=== PATIENT | female | born 1965 | race Caucasian/White ===

== ENCOUNTER 2017-02-02 20:04 | Inpatient (IN) | payer OTHER ==
[~2017-02-02] VITALS: Ht 154.9 cm; Wt 75.9 kg
[2017-02-02] MEDS ORDERED: niCARdipine-D5W 0.1MG/ML DRIP 200 ML IV STA (20:24)
[2017-02-02 20:27] LABS: BASOPHILS % 0.5 % (0.0-2.0); EOSINOPHILS # 0.1 10^3/ul (0.0-0.5); EOSINOPHILS % 0.8 % (0.0-7.0); HEMATOCRIT 43.9 % (37.0-47.0); HEMOGLOBIN 14.7 g/dl (12.0-16.0); LYMPHOCYTES # 1.5 10^3/ul (0.8-2.9); LYMPHOCYTES % 20.1 % (15.0-51.0); MEAN CORPUSCULAR HEMOGLOBIN 26.6 pg (29.0-33.0); MEAN CORPUSCULAR HGB CONC 33.5 g/dl (32.0-37.0); MEAN CORPUSCULAR VOLUME 79.4 fl (82.0-101.0); MEAN PLATELET VOLUME 10.2 fl (7.4-10.4); MONOCYTE # 0.4 10^3/ul (0.3-0.9); MONOCYTES % 5.3 % (0.0-11.0); NEUTROPHIL # 5.5 10^3/ul (1.6-7.5); NEUTROPHILS % 72.6 % (39.0-77.0); PLATELET COUNT 279 10^3/UL (140-415); RED BLOOD COUNT 5.53 10^6/ul (4.20-5.40); RED CELL DISTRIBUTION WIDTH 13.4 % (11.5-14.5); WHITE BLOOD COUNT 7.6 10^3/ul (4.8-10.8)
[2017-02-02] MEDS ORDERED: SOD CHLORIDE 0.9% 50 ML IV ONE (20:30)
[2017-02-02] MEDS ORDERED: LABETALOL HCL 20MG INJ IV ONE (20:30)
[2017-02-02] MEDS ORDERED: ALTEPLASE 100 MG INJ IV* ONE (20:30)
[2017-02-02] MEDS ORDERED: ALTEPLASE (tPA) 1 MG/ML BOLUS SYG IV* ONE (20:30)
--- NOTE | 2017-02-02 20:34 | RADRPT ---
PROCEDURE: CT brain without IV contrast. CLINICAL INDICATION: Weakness. TECHNIQUE: CT examination of the brain was performed on a 64-slice multidetector scanner. The pat ient was examined without IV contrast. Sagittal and coronal reformatted images were made. The imag es were reviewed on a PACS workstation. Total radiation dose: Total CTDIvol: 45 mGy. Total DLP: 630 mGy-cm. One or more of the following dose reduction techniques were used: automated exposure control, adjustment of the mA and/or kV acco rding to patient size, or use of iterative reconstruction technique COMPARISON: None available. FINDINGS: The ventricles and cerebral sulci are normal in size for this patient's age. The grant/white matter differentiation is well preserved. There is no other abnormal intra-axial high, low density lesion, suggesting tumor, infarct, bleeding, av malformation or inflammatory mass. No subdural or epidural hematoma. There is calcified atherosclerosis of the intracranial internal c arotid arteries. The visualized paranasal sinuses and mastoid air cells are clear. The orbits are unremarkable. The calvarium is intact. No scalp abnormalities are seen. IMPRESSION: 1. Unremarkable CT brain without IV contrast. RPTAT: GG .Prakash Norwood MD, MD Date Time Electronically viewed and signed by .Prakash Norwood MD, on 02/02/2017 20:34 .Y/
[2017-02-02 20:49] LABS: INR 0.84; PROTIME 11.5 Sec (12.2-14.2); PT RATIO 0.9
[2017-02-02 20:50] LABS: PARTIAL THROMBOPLASTIN TIME 23.5 Sec (25.0-35.0)
[2017-02-02 20:51] LABS: ANION GAP 25 (8-16); BLOOD UREA NITROGEN 12 mg/dl (7-20); CALCIUM 10.6 mg/dl (8.4-10.2); CARBON DIOXIDE 25 mmol/L (21-31); CHLORIDE 101 mmol/L (97-110); CREATININE 0.64 mg/dl (0.44-1.00); GLUCOSE 126 mg/dl (70-220); POTASSIUM 3.9 mmol/L (3.5-5.1); SODIUM 147 mmol/L (135-144)
[2017-02-02] MEDS ORDERED: ASPIRIN 325 MG TAB PO ONE (21:00)
[2017-02-02 21:04] LABS: TROPONIN-I < 0.012 ng/ml (0.00-0.12)
[2017-02-02 21:15] LABS: ADD UMIC NO; UR ASCORBIC ACID NEGATIVE (NEGATIVE); UR BILIRUBIN (Dip) NEGATIVE (NEGATIVE); UR BLOOD (Dip) NEGATIVE (NEGATIVE); UR CLARITY CLEAR (CLEAR); UR COLOR COLORLESS (YELLOW); UR GLUCOSE (Dip) NEGATIVE (NEGATIVE); UR KETONES (Dip) NEGATIVE (NEGATIVE); UR LEUKOCYTE ESTERASE (Dip) NEGATIVE Leu/ul (NEGATIVE); UR NITRITE (Dip) NEGATIVE (NEGATIVE); UR SPECIFIC GRAVITY (Dip) 1.002 (1.003-1.030); UR TOTAL PROTEIN (Dip) NEGATIVE (NEGATIVE); UR UROBILINOGEN (Dip) NEGATIVE (NEGATIVE)
--- NOTE | 2017-02-02 21:16 | RADRPT ---
PROCEDURE: XR Chest. CLINICAL INDICATION: Stroke. TECHNIQUE: Single frontal chest x-ray. COMPARISON: None available. FINDINGS: The cardiomediastinal silhouette is unremarkable. No pneumothorax, pleural effusion or consolidation is seen. No acute osseous abnormality is noted. IMPRESSION: 1. No acute cardiopulmonary abnormality. RPTAT: HFN .Franck Fernandes MD, MD Date Time Electronically viewed and signed by .Franck Fernandes MD, on 02/02/2017 21:16 .N/
[2017-02-02 21:20] LABS: BARBITURATES Negative (NEGATIVE); BENZODIAZEPINES Negative (NEGATIVE); CANNABINOIDS Negative (NEGATIVE); COCAINE Negative (NEGATIVE); OPIATES Negative (NEGATIVE)
[2017-02-02] MEDS ORDERED: ACETAMINOPHEN 325 MG TAB PO PRN (21:30)
[2017-02-02] MEDS ORDERED: ONDANSETRON 4 MG INJ IV PRN (21:30)
--- NOTE | 2017-02-02 22:23 | ERA ---
ER Documentation Chief Complaint Date/Time DATE: 02/02/17 TIME: 22:20 Chief Complaint walked in er co"numbness of face and l arm for 3-4 hours" HPI Patient is a 51-year-old female with hypertension who presents with left hand and left leg numbness. She said that the symptoms started "3-4 hours ago". She feels numb. She has decreased strength in the left upper and left lower extremity. She has never had this before. She took her blood pressure medicine before coming to the ER. When I asked her exactly what time this started she said "5:00 but I do not know". Upon review of old medical records this is the patient's first visit to the emergency department. She does not know the name of her primary doctor. ROS All systems reviewed and are negative except as per history of present illness. Allergies Allergies: Coded Allergies: No Known Allergy (Unverified , 02/02/17) PMhx/Soc History of Surgery: No Anesthesia Reaction: No Hx Respiratory Disorders: No Hx Cardiac Disorders: Yes (HTN) Hx Psychiatric Problems: No Hx Miscellaneous Medical Probl: No Hx Alcohol Use: No Hx Substance Use: No Hx Tobacco Use: No Smoking Status: Never smoker FmHx Family History: diabetes Physical Exam Vitals Vital Signs Date Time Temp Pulse Resp B/P Pulse Ox O2 Delivery O2 Flow Rate FiO2 02/02/17 21:38 78 20 153/90 98 Room Air 02/02/17 20:08 97.8 100 18 222/113 97 Physical Exam Const: Moderate distress Head: Atraumatic Eyes: Normal Conjunctiva ENT: Normal External Ears, Nose and Mouth. Neck: Full range of motion..~ No meningismus. Resp: Clear to auscultation bilaterally Cardio: Regular rate and rhythm, no murmurs Abd: Soft, non tender, non distended. 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, pronator drift on the left, difficulty with lifting the left leg compared to the right off the bed Psych: Normal Mood and Affect Result Diagram: 02/02/17201702/02/17 2018 Results 24 hrs Laboratory Tests Test 02/02/17 20:13 02/02/17 20:18 02/02/17 20:50 Bedside Glucose 124mg/dL White Blood Count 7.610^3/ul Red Blood Count 5.5310^6/ul Hemoglobin 14.7g/dl Hematocrit 43.9% Mean Corpuscular Volume 79.4fl Mean Corpuscular Hemoglobin 26.6pg Mean Corpuscular Hemoglobin Concent 33.5g/dl Red Cell Distribution Width 13.4% Platelet Count 62376^3/UL Mean Platelet Volume 10.2fl Neutrophils % 72.6% Lymphocytes % 20.1% Monocytes % 5.3% Eosinophils % 0.8% Basophils % 0.5% Nucleated Red Blood Cells % 0.0/100WBC Neutrophils # 5.510^3/ul Lymphocytes # 1.510^3/ul Monocytes # 0.410^3/ul Eosinophils # 0.110^3/ul Basophils # 0.010^3/ul Nucleated Red Blood Cells # 0.010^3/ul Prothrombin Time 11.5Sec Prothrombin Time Ratio 0.9 INR International Normalized Ratio 0.84 Activated Partial Thromboplast Time 23.5Sec Sodium Level 147mmol/L Potassium Level 3.9mmol/L Chloride Level 101mmol/L Carbon Dioxide Level 25mmol/L Anion Gap 25 Blood Urea Nitrogen 12mg/dl Creatinine 0.64mg/dl Glucose Level 126mg/dl Hemoglobin A1c 6.1% Calcium Level 10.6mg/dl Troponin I < 0.012ng/ml Urine Color COLORLESS Urine Clarity CLEAR Urine pH 8.0 Urine Specific [place] 1.002 Urine Ketones NEGATIVEmg/dL Urine Nitrite NEGATIVEmg/dL Urine Bilirubin NEGATIVEmg/dL Urine Urobilinogen NEGATIVEmg/dL Urine Leukocyte Esterase NEGATIVELeu/ul Urine Hemoglobin NEGATIVEmg/dL Urine Glucose NEGATIVEmg/dL Urine Total Protein NEGATIVEmg/dl Urine Opiates Screen Negative Urine Barbiturates Negative Urine Amphetamines Screen Negative Urine Benzodiazepines Screen Negative Urine Cocaine Screen Negative Urine Cannabinoids Negative Current Medications Medications (Trade) Dose Ordered Sig/Romelia Route PRN Reason Start Time Stop Time Status Last Admin Dose Admin Labetalol HCl 20 mg 20 mg ONCE ONCE IV 02/02/17 20:30 02/02/17 20:38 DC Nicardipine HCl (Cardene Iv) 200 ml @ 50 mls/hr ONCE STAT IV 02/02/17 20:24 02/02/17 20:38 DC Alteplase, Recombinant (Activase) 6.3 mg BOLUS OVER 1 MIN ONCE IV* 02/02/17 20:30 02/02/17 20:38 DC Alteplase, Recombinant 56.7 mg 56.7 mg ISCHEMIC STROKE ONCE IV* 02/02/17 20:30 02/02/17 20:38 DC Sodium Chloride (NS) 50 ml @ 0 mls/hr FLUSH AFTER TPA ONCE IV 02/02/17 20:30 02/02/17 20:38 DC Aspirin (Aspirin) 325 mg ONCE ONCE PO 02/02/17 21:00 02/02/17 21:01 DC 02/02/17 20:52 Ondansetron HCl (Zofran Inj) 4 mg ER BRIDGE PRN IV NAUSEA AND/OR VOMITING 02/02/17 21:30 02/03/17 21:29 Acetaminophen (Tylenol Tab) 650 mg ER BRIDGE PRN PO MILD PAIN/FEVER 02/02/17 21:30 02/03/17 21:29 Procedures/MDM EKG read by me: Rate/Rhythm: Regular rate and rhythm at a normal rate Intervals: Normal Impression: No evidence of ischemia or arrhythmia CT brain negative per radiology. Chest x-ray negative per radiology Patient is a 51-year-old female who presents with left upper and lower extremity weakness. A code stroke was called immediately after evaluation at 2016. We called tele-neurology at 2017. The patient went to CT scan at 2021. I spoke with Dr. De La Cruz from neurology at . Dr. De La Cruz performed evaluation at 2035 and 2036 determined that the patient did not require TPA as her symptoms had resolved almost completely. I believe that this patient was most likely a TIA but given her age her likelihood of having a stroke in the next 48 hours is high and therefore the patient will require admission to the hospital. The patient was not given TPA as her symptoms resolved and the risks of giving TPA would outweigh the benefits. The patient passed a bedside swallow evaluation was given aspirin by mouth. She will be admitted to the care of Dr. Briceno from the panel team as she has preferred [employer] insurance. She will be admitted to a telemetry bed. Critical Care: Time: 35 minutes excluding all billable procedures. Treatments/Evaluations: Close monitoring and treatment of unstable vital signs, cardiorespiratory, and neurologic status, while maintaining tight balance of fluid, respiratory, and cardiac interventions. Departure Diagnosis: Primary Impression: TIA (transient ischemic attack) Qualified Code: G45.9 - Transient cerebral ischemia, unspecified type Additional Impression: Numbness Condition: VJ Garvin MD Feb 02, 2017 22:23
[2017-02-02 23:22] VITALS: TEMP 98.1
[2017-02-02 23:49] VITALS: BP 164/81; PULSE 77; RESP 18
[2017-02-02 23:54] VITALS: Ht 154.9 cm; Wt 75.9 kg
[2017-02-03] VITALS (12 sets, daily range): BP systolic 125–155; BP diastolic 68–89; PULSE 63–86; RESP 16–21
[2017-02-03] MEDS ORDERED: LISI20TA11 PO (00:09)
[2017-02-03] MEDS ORDERED: ONDANSETRON 4 MG INJ IV PRN (01:00)
[2017-02-03] MEDS ORDERED: ACETAMINOPHEN 325 MG TAB PO PRN (01:00)
--- NOTE | 2017-02-03 06:47 | HP ---
Date/Time of Note Date/Time of Note DATE: 02/03/17 TIME: 06:36 Assessment/Plan VTE Prophylaxis VTE Prophylaxis Intervention: LMWH Lines/Catheters IV [facility]from [facility] Saline Lock Urinary Cath still in place: No Assessment/Plan Assessment/Plan 1. Rule out stroke -Patient weakness and numbness has now completely resolved. CT of the head in the ER was unremarkable. She was evaluated by the telemetry neurologist who recommended against TPA given symptom was almost resolved. -She will be placed on aspirin, statin and subcutaneous heparin or Lovenox for DVT prophylaxis. -Patient has already received anti-hypertensive in the ER, which was appropriate given her systolic blood pressure was greater than 220 and also since they were anticipating likely TPA. Blood pressure has been in the 150s/ 80s. I will not start blood pressure medication now -We will obtain MRI of the brain, carotid Doppler ultrasound, a 2D echo and place a neurology consult -Speech/swallow and a physical therapy evaluation 2. Hypertensive emergency: Blood pressure is better controlled now. Will monitor HPI/ROS Admit Date/Time Admit Date/Time Feb 02, 2017 at 21:14 Hx of Present Illness This is a 51-year-old female with a history of hypertension who presented to the emergency department complaining of left-sided numbness and weakness. About 3-4 hours prior to her arrival to the ER, she noted left arm and leg numbness and weakness. Denied slurred speech, facial droop, double vision or any other visual disturbance, chest pain, shortness of breath or seizure-like activities. Denied similar symptoms in the past. She said she has been under stress lately. When she came to the ER, reportedly she was emotional and was crying. Currently patient was admitted to telemetry unit and she is actually feeling well. She stated that the reason why she was crying when she was in the ER was because she did not want to be admitted and wanted to go home. Her left upper and left lower extremity weakness and numbness are completely resolved now. When she presented to the ER, code stroke was activated. Her initial blood pressure was 222/113 with a heart rate of 100. CT of the head was unremarkable. Patient was evaluated by the telemetry neurologist who recommended against TPA given her symptom at the time of evaluation was almost completely resolved. PMH/Family/Social Past Medical History Medical History: hypertension Past Surgical History Past Surgical Hx: cholecystectomy, other (Partial hysterectomy) Social History Alcohol Use: none Smoking Status: Never smoker Drug Use: none Exam/Review of Systems Vital Signs Vitals Vital Signs Date Time Temp Pulse Resp B/P Pulse Ox O2 Delivery O2 Flow Rate FiO2 02/03/17 04:07 86 02/03/17 03:47 98.3 21 150/79 97 02/02/17 23:49 Room Air Exam Constitutional: alert, oriented, well developed Head: normocephalic Neck: non-tender, supple Respiratory: clear to auscultation, normal air movement Cardiovascular: nl pulses, regular rate and rhythm Gastrointestinal: non-tender, soft Extremities: normal pulses Neurological: nl mental status, nl speech, nl strength, other Labs Result Diagram: 02/02/17201702/02/172017 Medications Medications Current Medications Aspirin (Aspirin) 81 mg DAILY PO ; Start 02/03/17 at 09:00 Atorvastatin Calcium (Lipitor) 20 mg HS PO ; Start 02/03/17 at 21:00 Acetaminophen (Tylenol Tab) 650 mg Q6H PRN PO PAIN AND OR ELEVATED TEMP; Start 02/03/17 at 01:00 Ondansetron HCl (Zofran Inj) 4 mg Q6H PRN IV NAUSEA AND/OR VOMITING; Start at 01:00 Enoxaparin Sodium (Lovenox) 40 mg DAILY SC ; Start 02/03/17 at 09:00 POLO HERNANDEZ MD Feb 03, 2017 06:46
[2017-02-03 07:21] LABS: BASOPHILS % 0.4 % (0.0-2.0); EOSINOPHILS # 0.2 10^3/ul (0.0-0.5); EOSINOPHILS % 2.1 % (0.0-7.0); HEMOGLOBIN 12.7 g/dl (12.0-16.0); LYMPHOCYTES # 2.5 10^3/ul (0.8-2.9); LYMPHOCYTES % 35.5 % (15.0-51.0); MEAN CORPUSCULAR HEMOGLOBIN 25.8 pg (29.0-33.0); MEAN CORPUSCULAR HGB CONC 32.6 g/dl (32.0-37.0); MEAN CORPUSCULAR VOLUME 79.1 fl (82.0-101.0); MEAN PLATELET VOLUME 10.5 fl (7.4-10.4); MONOCYTE # 0.6 10^3/ul (0.3-0.9); MONOCYTES % 8.5 % (0.0-11.0); NEUTROPHIL # 3.8 10^3/ul (1.6-7.5); NEUTROPHILS % 53.2 % (39.0-77.0); PLATELET COUNT 260 10^3/UL (140-415); RED BLOOD COUNT 4.93 10^6/ul (4.20-5.40); WHITE BLOOD COUNT 7.1 10^3/ul (4.8-10.8)
[2017-02-03 07:40] LABS: ALBUMIN 4.2 g/dl (3.3-4.9); ALBUMIN/GLOBULIN RATIO 1.35; BILIRUBIN,INDIRECT 0.3 mg/dl (0-1.1); BILIRUBIN,TOTAL 0.3 mg/dl (0.2-1.3); CALCIUM 9.1 mg/dl (8.4-10.2); CHOL/HDL RATIO 4.6 RATIO; CREATININE 0.65 mg/dl (0.44-1.00); POTASSIUM 3.9 mmol/L (3.5-5.1); TOTAL PROTEIN 7.3 g/dl (6.1-8.1)
[2017-02-03] MEDS: ASPIRIN 81 MG TAB PO SCH (09:54)
[2017-02-03] MEDS: ENOXAPARIN 40 MG/0.4 ML SYG SC SCH (09:54)
--- NOTE | 2017-02-03 12:06 | RADRPT ---
PROCEDURE: US Carotids. CLINICAL INDICATION: bruit , TIA TECHNIQUE: Multiple sonographic of the carotid bifurcation region and vertebral arteries were obta ined utilizing grant scale, duplex and color-flow imaging. The images were reviewed on a PACS worksta tion. COMPARISON: No prior studies are available for comparison. FINDINGS: Evaluation of the right carotid bifurcation region reveals no significant calcific atherosclerotic d isease. Evaluation of the left carotid bifurcation region reveals no significant calcific atherosclerotic di sease. There is antegrade flow within the vertebral arteries bilaterally. RIGHT CAROTID MEASUREMENTS: Common Carotid Flfvod66.8 (cm/sec) Internal Carotid Artery - ifoxzhhf70.2 (cm/sec) Internal Carotid Artery - mid56.7 (cm/sec) Internal Carotid Artery - mhnlis02.8 (cm/sec) Internal Carotid/Common Carotid1.24 LEFT CAROTID MEASUREMENTS: Common Carotid Svjlvb57 (cm/sec) Internal Carotid Artery - dajdqhrp59.1 (cm/sec) Internal Carotid Artery - mid65.1 (cm/sec) Internal Carotid Artery - cegicy15.3 (cm/sec) Internal Carotid/Common Carotid1.05 RPTAT: AA IMPRESSION: No evidence for hemodynamically significant stenosis in the bilateral internal carotid arteries - va lidated velocity measurements with angiographic measurements, velocity criteria are extrapolated fro m diameter data as defined by the Society of Radiologists in Ultrasound Consensus Conference Radiolo gy 2003; 229;340-346. This study does indirectly reference the measurement of the distal ICA diamet er as the denominator for stenosis measurement. Normal antegrade flow in the vertebral arteries bilaterally. .Shailesh Olson MD, Date Time Electronically viewed and signed by .Shailesh Olson MD, on 02/03/2017 12:05 .S/
--- NOTE | 2017-02-03 12:09 | CONS ---
Date/Time of Note Date/Time of Note DATE: 02/03/17 TIME: 12:05 Assessment/Plan Assessment/Plan Chief Complaint/Hosp Course 51 yo female with history of hypertension admitted with 3 hours of left sided numbness/weakness, resolved on arrival Recommendations -maintain normotensive BP <140/90 -c/w aspirin 81 mg daily for secondary CVA prevention HBA1C pre-diabetes 6.0% counseled on exercise and dietary modification LDL: 118 may benefit from low dose statin , dietary modification -MRI Brain w/o contrast -Carotid Duplex -ECHO pending -DVT ppx -PT/OT eval will follow Problems: Consultation Date/Type/Reason Admit Date/Time Feb 02, 2017 at 21:14 Date of Consultation: Feb 03, 2017 Type of Consultation: Neurology Reason for Consultation evaluation for CVA Referring Provider: EASTON MCCULLOUGH Hx of Present Illness 51 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 On arrival to ER symptoms resolved and was not a candidate for IV tPA. She denies any dysarthria or aphasia, no facial droop, visual disturbances or difficulty ambulating. She has no prior similar sx in the past. On arrival SBP elevated 223 /113 sinus tachycardia.Symptoms are stable no further neurologic events she is planned for CVA work up. At home she admits to compliance with anti-hypertensives, takes Lisinopril 20 mg daily, occasionally takes aspirin as needed. Past Medical History Medical History: hypertension Past Surgical History Past Surgical Hx: cholecystectomy, other (Partial hysterectomy) Social History Alcohol Use: none Smoking Status: Never smoker Drug Use: none Exam/Review of Systems Vital Signs Vitals Vital Signs Date Time Temp Pulse Resp B/P Pulse Ox O2 Delivery O2 Flow Rate FiO2 02/03/17 11:09 98.2 78 16 125/85 96 02/02/17 23:49 Room Air Exam Constitutional: alert, oriented, well developed Psych: no complaints Neurological: WEAPONS SPECIALIST II-XII intact, DTR's symmetric, nl mental status, nl speech, nl strength Results Result Diagram: 02/03/17 0633 02/03/17 0633 Results 24 hrs Laboratory Tests Test 02/02/17 20:13 02/02/17 20:18 02/02/17 20:50 02/03/17 06:33 Bedside Glucose 124 White Blood Count 7.6 7.1 Red Blood Count 5.53 H 4.93 Hemoglobin 14.7 12.7 Hematocrit 43.9 39.0 Mean Corpuscular Volume 79.4 L 79.1 L Mean Corpuscular Hemoglobin 26.6 L 25.8 L Mean Corpuscular Hemoglobin Concent 33.5 32.6 Red Cell Distribution Width 13.4 14.0 Platelet Count 279 260 Mean Platelet Volume 10.2 10.5 H Neutrophils % 72.6 53.2 Lymphocytes % 20.1 35.5 Monocytes % 5.3 8.5 Eosinophils % 0.8 2.1 Basophils % 0.5 0.4 Nucleated Red Blood Cells % 0.0 0.0 Neutrophils # 5.5 3.8 Lymphocytes # 1.5 2.5 Monocytes # 0.4 0.6 Eosinophils # 0.1 0.2 Basophils # 0.0 0.0 Nucleated Red Blood Cells # 0.0 0.0 Prothrombin Time 11.5 L Prothrombin Time Ratio 0.9 INR International Normalized Ratio 0.84 Activated Partial Thromboplast Time 23.5 L Sodium Level 147 H 145 H Potassium Level 3.9 3.9 Chloride Level 101 104 Carbon Dioxide Level 25 25 Anion Gap 25 H 20 H Blood Urea Nitrogen 12 11 Creatinine 0.64 0.65 Glucose Level 126 107 Hemoglobin A1c 6.1 H 6.0 H Calcium Level 10.6 H 9.1 Troponin I < 0.012 < 0.012 Urine Color COLORLESS Urine Clarity CLEAR Urine pH 8.0 Urine Specific [place] 1.002 L Urine Ketones NEGATIVE Urine Nitrite NEGATIVE Urine Bilirubin NEGATIVE Urine Urobilinogen NEGATIVE Urine Leukocyte Esterase NEGATIVE Urine Hemoglobin NEGATIVE Urine Glucose NEGATIVE Urine Total Protein NEGATIVE Urine Opiates Screen Negative Urine Barbiturates Negative Urine Amphetamines Screen Negative Urine Benzodiazepines Screen Negative Urine Cocaine Screen Negative Urine Cannabinoids Negative Total Bilirubin 0.3 Direct Bilirubin 0.00 Indirect Bilirubin 0.3 Aspartate Amino Transf (AST/SGOT) 27 Alanine Aminotransferase (ALT/SGPT) 45 Alkaline Phosphatase 77 Total Protein 7.3 Albumin 4.2 Globulin 3.10 Albumin/Globulin Ratio 1.35 Triglycerides Level 118 Cholesterol Level 181 LDL Cholesterol, Calculated 118 HDL Cholesterol 39 Cholesterol/HDL Ratio 4.6 Medications Medications Current Medications Aspirin (Aspirin) 81 mg DAILY PO Last administered on 02/03/17t 09:54; Admin Dose 81 MG; Start 02/03/17 at 09:00 Atorvastatin Calcium (Lipitor) 20 mg HS PO ; Start 02/03/17 at 21:00 Acetaminophen (Tylenol Tab) 650 mg Q6H PRN PO PAIN AND OR ELEVATED TEMP; Start 02/03/17 at 01:00 Ondansetron HCl (Zofran Inj) 4 mg Q6H PRN IV NAUSEA AND/OR VOMITING; Start at 01:00 Enoxaparin Sodium (Lovenox) 40 mg DAILY SC Last administered on 02/03/17t 09:54 ; Admin Dose 40 MG; Start 02/03/17 at 09:00 STEVIE TURCIOS MD Feb 03, 2017 12:09
--- NOTE | 2017-02-03 15:11 | RADRPT ---
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 Physician: POLO HERNANDEZ Quality: Adequate Procedures: Transthoracic echocardiogram with complete 2D, M-Mode, and doppler examination. Indications: TIA. 2D/M Mode Doppler Measurement Value Normal Ranges Measurement Value Normal Ranges LVIDd 2D 3.5 3.5 - 5.6 cm AV Peak Leeroy 1.7 m/sec LVIDs 2D 2.4 2.1 - 4.1 cm AV Peak PG 12.0 mmHg FS 2D 32.4 % LVOT Peak Leeroy 1.2 m/sec LVPWd 2D 1.3 0.6 - 1.1 cm LVOT Peak PG 6.0 mmHg IVSd 2D 1.3 0.6 - 1.1 cm MV E Peak Leeroy 0.9 m/sec IVS/LVPW 2D 1.0 MV A Peak Leeroy 0.8 m/sec AoR Diam 2D 2.6 2.0 - 3.7 cm MV E/A 1.1 LA/Ao 2D 1 0 - 1 MV Decel Time 218 msec EDV 2D 44.7 cm3 MV E/A 1.1 ESV 2D 13.8 cm3 TR Peak Leeroy 2.3 m/sec LA Dimen 2D 3.3 2.3 - 4.0 cm TR Peak PG 22.0 mmHg RVSP 32.0 mmHg Findings Left Ventricle: Normal left ventricular systolic function. Normal left ventricular cavity size. Mild concentric left ventricular hypertrophy. Ejection fraction is visually estimated at 60 %. Tissue Doppler/Mitral Doppler indices are within normal limits. Right Ventricle: Normal right ventricular size. Normal right ventricular systolic function. Left Atrium: The left atrium is normal in size. Right Atrium: The right atrium is normal in size. Mitral Valve: Mild mitral leaflet calcification. Mild mitral annular calcification. Trace mitral regurgitation. Aortic Valve: Normal appearance of the aortic valve. No significant aortic stenosis or insufficiency. Tricuspid Valve: Normal appearance of the tricuspid valve. Estimated peak PA systolic pressure 32 mmHg. There is trace tricuspid regurgitation. Pulmonic Valve: Pulmonic valve not well visualized. There is trace pulmonic regurgitation. Pericardium: Normal pericardium with no significant pericardial effusion. Aorta: Normal aortic root. IVC: Normal size and normal respiratory collapse consistent with normal right atrial pressure. Conclusions 1.Normal left ventricular systolic function. Normal left ventricular cavity size. Mild concentric left ventricular hypertrophy. Ejection fraction is visually estimated at 60 %. Tissue Doppler/Mitral Doppler indices are within normal limits. 2.Mild mitral leaflet calcification. Mild mitral annular calcification. Trace mitral regurgitation. 3.Normal appearance of the aortic valve. No significant aortic stenosis or insufficiency. 4.Normal appearance of the tricuspid valve. Estimated peak PA systolic pressure 32 mmHg. There is trace tricuspid regurgitation. Electronically Signed By: Taz Blanco 03-Feb-2017 15:10:04 0700 Patient Name: LEE MAZA Study Date: 03-Feb-2017 [id number]
--- NOTE | 2017-02-03 15:12 | PN ---
Date/Time of Note Date/Time of Note DATE: 02/03/17 TIME: 15:09 Assessment/Plan VTE Prophylaxis VTE Prophylaxis Intervention: SCD's Lines/Catheters IV [facility]from [facility] [place] [facility] Urinary Cath still in place: No Assessment/Plan Chief Complaint/Hosp Course Assessment and plan 1. CVA versus TIA. Initial CT scan of the head was unremarkable. Follow-up on MRI of the brain. Neurologist following. Of note carotid Doppler did show no evidence for hemodynamically significant stenosis. Continue on aspirin and statin medication. 2. Essential hypertension. Monitor for now. Will provide with antihypertensives as needed Disposition and plan: Neurologist following. Follow-up an MRI of the brain. Discharge when medically stable and cleared by consultants Discussed plan of care with Dr. Bennett Problems: Subjective 24 Hr Interval Summary Free Text/Dictation No signs or symptoms of Left-sided weakness reported numbness at this time. Will follow up. Exam/Review of Systems Vital Signs Vitals Vital Signs Date Time Temp Pulse Resp B/P Pulse Ox O2 Delivery O2 Flow Rate FiO2 02/03/17 12:10 63 02/03/17 11:09 98.2 16 125/85 96 02/02/17 23:49 Room Air Exam Constitutional: alert, oriented Psych: nl mood/affect Head: normocephalic Respiratory: clear to auscultation, normal air movement Cardiovascular: regular rate and rhythm Gastrointestinal: non-tender, soft Musculoskeletal: nl extremities to inspection Neurological: HIGHW[employer] DES[employer] ENGINEER II-XII intact, nl mental status, nl speech Results Result Diagram: 02/03/17 0633 02/03/17 0633 Results 24 hrs Laboratory Tests Test 02/02/17 20:13 02/02/17 20:18 02/02/17 20:50 02/03/17 06:33 Bedside Glucose 124 White Blood Count 7.6 7.1 Red Blood Count 5.53 H 4.93 Hemoglobin 14.7 12.7 Hematocrit 43.9 39.0 Mean Corpuscular Volume 79.4 L 79.1 L Mean Corpuscular Hemoglobin 26.6 L 25.8 L Mean Corpuscular Hemoglobin Concent 33.5 32.6 Red Cell Distribution Width 13.4 14.0 Platelet Count 279 260 Mean Platelet Volume 10.2 10.5 H Neutrophils % 72.6 53.2 Lymphocytes % 20.1 35.5 Monocytes % 5.3 8.5 Eosinophils % 0.8 2.1 Basophils % 0.5 0.4 Nucleated Red Blood Cells % 0.0 0.0 Neutrophils # 5.5 3.8 Lymphocytes # 1.5 2.5 Monocytes # 0.4 0.6 Eosinophils # 0.1 0.2 Basophils # 0.0 0.0 Nucleated Red Blood Cells # 0.0 0.0 Prothrombin Time 11.5 L Prothrombin Time Ratio 0.9 INR International Normalized Ratio 0.84 Activated Partial Thromboplast Time 23.5 L Sodium Level 147 H 145 H Potassium Level 3.9 3.9 Chloride Level 101 104 Carbon Dioxide Level 25 25 Anion Gap 25 H 20 H Blood Urea Nitrogen 12 11 Creatinine 0.64 0.65 Glucose Level 126 107 Hemoglobin A1c 6.1 H 6.0 H Calcium Level 10.6 H 9.1 Troponin I < 0.012 < 0.012 Urine Color COLORLESS Urine Clarity CLEAR Urine pH 8.0 Urine Specific [place] 1.002 L Urine Ketones NEGATIVE Urine Nitrite NEGATIVE Urine Bilirubin NEGATIVE Urine Urobilinogen NEGATIVE Urine Leukocyte Esterase NEGATIVE Urine Hemoglobin NEGATIVE Urine Glucose NEGATIVE Urine Total Protein NEGATIVE Urine Opiates Screen Negative Urine Barbiturates Negative Urine Amphetamines Screen Negative Urine Benzodiazepines Screen Negative Urine Cocaine Screen Negative Urine Cannabinoids Negative Total Bilirubin 0.3 Direct Bilirubin 0.00 Indirect Bilirubin 0.3 Aspartate Amino Transf (AST/SGOT) 27 Alanine Aminotransferase (ALT/SGPT) 45 Alkaline Phosphatase 77 Total Protein 7.3 Albumin 4.2 Globulin 3.10 Albumin/Globulin Ratio 1.35 Triglycerides Level 118 Cholesterol Level 181 LDL Cholesterol, Calculated 118 HDL Cholesterol 39 Cholesterol/HDL Ratio 4.6 Medications Medications Current Medications Aspirin (Aspirin) 81 mg DAILY PO Last administered on 02/03/17 09:54; Admin Dose 81 MG; Start 02/03/17 at 09:00 Atorvastatin Calcium (Lipitor) 20 mg HS PO ; Start 02/03/17 at 21:00 Acetaminophen (Tylenol Tab) 650 mg Q6H PRN PO PAIN AND OR ELEVATED TEMP; Start 02/03/17 at 01:00 Ondansetron HCl (Zofran Inj) 4 mg Q6H PRN IV NAUSEA AND/OR VOMITING; Start at 01:00 Enoxaparin Sodium (Lovenox) 40 mg DAILY SC Last administered on 02/03/17 09:54 ; Admin Dose 40 MG; Start 02/03/17 at 09:00 EASTON MCCULLOUGH Feb 03, 2017 15:12
--- NOTE | 2017-02-03 15:28 | RADRPT ---
PROCEDURE: MR Brain without contrast. CLINICAL INDICATION: Weakness. TIA. TECHNIQUE: An MRI of the brain was performed on a high-resolution MR scanner utilizing the followi ng sequences: Sagittal and axial T1 weighted, axial T2 weighted, axial FLAIR, coronal GRE, and axial diffusion weighted with ADC mapping. Images were reviewed high-resolution PACS workstation. No con trast was administered. COMPARISON: CT head 02/02/2017. FINDINGS: No high signal abnormalities are seen on the diffusion-weighted images to suggest the presence of ac anam ischemia or recent infarct. There is no evidence of intracranial hemorrhage, mass effect, or mi dline shift. No extra-axial fluid collections are seen. There is age appropriate mild generalized v olume loss. Increased T2-weighted/FLAIR signal intensity is noted within the periventricular and rona p white matter, consistent with mild microvascular ischemic disease. The signal intensity is normal the brainstem and cerebellum. No hypointense signal abnormalities are seen on the GRE images to sug gest the presence of blood degradation products. Normal flow voids are visible in the proximal intr acranial arteries and dural sinuses, indicating patency. The visualized paranasal sinuses are gross ly clear. IMPRESSION: 1. No evidence of acute infarct. 2. Mild mild microvascular ischemic disease in the periventricular and deep white matter. RPTAT: BB .Dia Agrawal MD, MD Date Time Electronically viewed and signed by .Dia Agrawal MD, on 02/03/2017 15:28 .O/
[2017-02-03] MEDS ORDERED: ATORVASTATIN 20 MG TAB PO SCH (21:00)
[2017-02-04] VITALS (8 sets, daily range): BP systolic 105–135; BP diastolic 55–78; PULSE 56–68; RESP 17–19
[2017-02-04] MEDS: ASPIRIN 81 MG TAB PO SCH (08:47)
[2017-02-04] MEDS: ENOXAPARIN 40 MG/0.4 ML SYG SC SCH (08:47)
--- NOTE | 2017-02-04 10:52 | PDOCDIS ---
Discharge Instructions CONDITION Patient Condition: Good HOME CARE INSTRUCTIONS: Diet Instructions: Modified Fat ACTIVITY: Activity Restrictions: No Restrictions FOLLOW UP/APPOINTMENTS Follow-up Plan F/U WITH YOUR PCP IN 1-2 WEEKS EMANUEL GALVEZ Feb 04, 2017 10:52
--- NOTE | 2017-02-04 11:42 | CONS ---
Date/Time of Note Date/Time of Note DATE: 02/04/17 TIME: 11:41 Consult Date/Type/Reason Admit Date/Time Feb 02, 2017 at 21:14 Initial Consult Date 02/03/17 Type of Consultation: Neurology Reason for Consultation transient left sided weakness Ordering Provider: EASTON MCCULLOUGH Subjective symptoms resolved Objective Vital Signs Date Time Temp Pulse Resp B/P Pulse Ox O2 Delivery O2 Flow Rate FiO2 02/04/17 11:24 97.6 65 17 135/78 95 02/02/17 23:49 Room Air Intake and Output 02/03/17 02/03/17 02/04/17 15:00 23:00 07:00 Intake Total 800 ml 500 ml Balance 800 ml 500 ml Exam Constitutional: alert, oriented, well developed Psych: no complaints Neurological: FAITH DOCTOR II-XII intact, DTR's symmetric, nl mental status, nl speech, nl strength Results/Medications Result Diagram: 02/03/17 0633 02/03/17 0633 Medications Current Medications Aspirin (Aspirin) 81 mg DAILY PO Last administered on 02/04/17 08:47; Admin Dose 81 MG; Start 02/03/17 at 09:00 Atorvastatin Calcium (Lipitor) 20 mg HS PO Last administered on 02/03/17 20:19 ; Admin Dose 20 MG; Start 02/03/17 at 21:00 Acetaminophen (Tylenol Tab) 650 mg Q6H PRN PO PAIN AND OR ELEVATED TEMP; Start 02/03/17 at 01:00 Ondansetron HCl (Zofran Inj) 4 mg Q6H PRN IV NAUSEA AND/OR VOMITING; Start at 01:00 Enoxaparin Sodium (Lovenox) 40 mg DAILY SC Last administered on 02/03/17 09:54 ; Admin Dose 40 MG; Start 02/03/17 at 09:00 Assessment/Plan Chief Complaint/Hosp Course 51 yo female with history of hypertension admitted with 3 hours of left sided numbness/weakness, resolved on arrival Recommendations -maintain normotensive BP <140/90 -c/w aspirin 81 mg daily for secondary CVA prevention HBA1C pre-diabetes 6.0% counseled on exercise and dietary modification LDL: 118 may benefit from low dose statin , dietary modification -MRI Brain w/o contrast normal -Carotid Duplex normal -ECHO normal -DVT ppx dc home today Problems: STEVIE TURCIOS MD Feb 04, 2017 11:42
--- NOTE | 2017-02-04 13:55 | DS ---
Date/Time of Note Date/Time of Note DATE: 02/04/17 TIME: 13:51 Discharge Summary Admission/Discharge Info Admit Date/Time Feb 02, 2017 at 21:14 Discharge Date/Time Feb 04, 2017 at 13:22 Discharge Diagnosis 1. Left-sided numbness likely secondary to severe anxiety versus TIA Brain MRI and carotid ultrasound were negative, A1c at 6.0 and LDL within normal limits Neurology consultation patient 2. Essential hypertension-stable Continue home lisinopril Patient Condition: Good Hospital Course Patient is a 51-year-old female with a history of hypertension who presented to the emergency department complaining of left-sided numbness and weakness. About 3-4 hours prior to her arrival to the ER, she noted left arm and leg numbness and weakness. Denied slurred speech, facial droop, double vision or any other visual disturbance, chest pain, shortness of breath or seizure-like activities. Workup including brain MRI and carotid ultrasound were negative. Patient was evaluated by neurology, A1c 6.0 and LDL was within normal limits. Patient's symptoms may have been secondary to severe anxiety versus TIA. Patient is felt to be stable for discharge and was clear for DC per neurology. On day of discharge patient vitals, labs and physical exam are stable, she no acute complaints and questions are answered. Home Meds Reported Medications Lisinopril* (Lisinopril*) 20 Mg Tablet, 20 MG PO DAILY, #30 TAB 02/03/17 Follow-up Plan Follow-up with PCP 1-2 weeks Primary Care Provider Chris Limon Time spent on discharge: > 30 minutes EMANUEL GALVEZ Feb 04, 2017 13:55
== END 2017-02-04 13:22 | disposition home or self-care (01) | DRG 69 ==
LOC: E/R 20:04 → TEL 21:14
PROVIDERS: ADMIT Internal Medicine; ATTEND Internal Medicine
DX: G45.9 Transient cerebral ischemic attack, unspecified (principal); I10 Essential (primary) hypertension; R20.0 Anesthesia of skin; F41.9 Anxiety disorder, unspecified; H53.9 Unspecified visual disturbance; Z79.82 Long term (current) use of aspirin
CPT/HCPCS: 70450; 70551; 71010; 80048; 80053; 80061; 80307; 81003; 82962; 83036; 84484; 85025; 85610; 85730; 92610; 93005; 93306; 93880; J1650; J2997

== ENCOUNTER 2017-09-06 05:40 | Inpatient (IN) | END 2017-09-13 17:50 | disposition home or self-care (01) | DRG 440 ==